=== PATIENT | male | born 1975 | race Caucasian/White ===

== ENCOUNTER 2020-11-22 09:05 | Emergency (ER) | payer OTHER | END 2020-11-22 11:53 | disposition home or self-care (01) | LOC: ER1 09:05 | DX: M25.562 Pain in left knee (principal); M25.552 Pain in left hip; E11.9 Type 2 diabetes mellitus without complications; Z88.8 Allergy status to other drugs, medicaments and biological substances; Z79.84 Long term (current) use of oral hypoglycemic drugs; Z79.899 Other long term (current) drug therapy | CPT/HCPCS: 73502; 73564; 99283 ==